=== PATIENT | female | born 1955 | race American Indian/Alaskan Native ===

== ENCOUNTER 2021-02-02 17:22 | Emergency (ER) | payer OTHER ==
[2021-02-02] MEDS ORDERED: HYDROmorphone 1 MG/ML Syringe IM ONE (17:46)
[2021-02-02] MEDS ORDERED: Ondansetron 4 MG Tab.DIS PO ONE (17:47)
[2021-02-02 17:48] VITALS: BP 151/72; PULSE 68
--- NOTE | 2021-02-02 17:48 | EDM.PDOC ---
ED HPI GENERAL MEDICAL PROBLEM - General Chief Complaint: Upper Extremity Injury/Pain Stated Complaint: SEVERE SHOULDER PAIN Time Seen by Provider: 02/02/21 17:48 Source of Information: Reports: Patient, Old Records, RN, RN Notes Reviewed History Limitations: Reports: No Limitations - History of Present Illness INITIAL COMMENTS - FREE TEXT/NARRATIVE: Pt presents to ER by POV with c/o that she is having pain to right shoulder that started today around noon. Pt took Tylenol, Ibuprofen, and Excedrin around noon without relief and pain getting worse. She has been applying ice also, but it doesn't help much. Denies trauma or specific injury, no known arthritis, and states the only thing she has done is rake leaves yesterday. Denies [place], neck pain, radiating pain, numbness, tingling, or motor weakness. Onset: Gradual Onset Date: 02/02/21 Onset Time: 12:00 Duration: Constant, Getting Worse Location: Reports: Upper Extremity, Right Quality: Reports: Ache, Sharp Severity: Severe Improves with: Reports: Immobilization Worsens with: Reports: Movement Associated Symptoms: Reports: No Other Symptoms Treatments MANAGER INFORMATION: Reports: Acetaminophen, NSAIDS Right Shoulder Pain Score (Numeric/FACES): 10 - Related Data Allergies Allergy/AdvReac Type Severity Reaction Status Date / Time Penicillins Allergy Hives Verified 02/02/21 17:28 Home Meds: Home Meds Mv,Calcium,Min/Iron/Folic/Vitk [Multi For Her Tablet] 1 tab PO DAILY 03/05/15 [History] Rosuvastatin [Crestor] 10 mg PO DAILY 12/10/16 [History] Venlafaxine [Effexor] 75 mg PO DAILY 12/10/16 [History] Aspirin 81 mg PO DAILY 02/15/18 [History] amLODIPine Besylate [Amlodipine Besylate] 5 mg PO DAILY 02/15/18 [History] Past Medical History HEENT History: Reports: Cataract Other HEENT History: bilat. cataracts Cardiovascular History: Reports: High Cholesterol, Hypertension, Other (See Below) Other Cardiovascular History: Angiogram twice in past. Told has "high BP on the inside" Respiratory History: Reports: None Gastrointestinal History: Reports: Other (See Below) Other Gastrointestinal History: occasional heartburn Genitourinary History: Reports: None Musculoskeletal History: Reports: Other (See Below) Other Musculoskeletal History: lower back pain x2 days. Middle back pain X1 day Neurological History: Reports: None Psychiatric History: Reports: Depression Endocrine/Metabolic History: Reports: None Hematologic History: Reports: None Immunologic History: Reports: None Oncologic (Cancer) History: Reports: None Dermatologic History: Reports: None Social & Family History - Family History Family Medical History: No Pertinent Family History - Caffeine Use Caffeine Use: Reports: Coffee - Living Situation & Occupation Living situation: Reports: , with Family Occupation: Employed Review of Systems - Review of Systems Review Of Systems: Comprehensive ROS is negative, except as noted in HPI. ED EXAM, GENERAL - Physical Exam Exam: See Below Exam Limited By: No Limitations General Appearance: Alert, WD/WN, No Apparent Distress Throat/Mouth: Normal Voice, No Airway Compromise Head: Atraumatic, Normocephalic Neck: Normal Inspection, Supple, Non-Tender, Full Range of Motion Respiratory/Chest: No Respiratory Distress Cardiovascular: Normal Peripheral Pulses Peripheral Pulses: 3+: Radial (L), Radial (R) Back Exam: Normal Inspection, Full Range of Motion. No: Paraspinal Tenderness, Vertebral Tenderness Extremities: No Pedal Edema, Normal Capillary Refill, Arm Pain (Focally tender at right shoulder), Limited Range of Motion (Right shoulder). No: Joint Swelling, Increased Warmth, Mottled, Pallor, Redness Neurological: Alert, Oriented, CN II-XII Intact, No Motor/Sensory Deficits Psychiatric: Normal Affect, Normal Mood Skin Exam: Warm, Dry, Intact, Normal Color, No Rash Course - Vital Signs Last Recorded V/S: Last Vital Signs Temp 98.6 F 02/02/21 17:25 Pulse 68 02/02/21 17:25 Resp 20 02/02/21 17:25 BP 151/72 H 02/02/21 17:25 Pulse Ox 100 02/02/21 17:25 - Orders/Labs/Meds Labs: Laboratory Tests 02/02/21 02/02/21 Range/Units 17:54 17:54 WBC 12.7 H (5.0-10.0) 10^3/uL RBC 4.98 (4.2-5.4) 10^6/uL Hgb 14.8 (12.0-16.0) g/dL Hct 44.3 (37.0-47.0) % MCV 89.0 (80-100) fL MCH 29.7 (27.0-34.0) pg MCHC 33.4 (33.0-35.0) g/dL Plt Count 223 (150-450) 10^3/uL Neut % (Auto) 79.3 H (42.2-75.2) % Lymph % (Auto) 12.5 L (20.5-50.1) % [place] % (Auto) 6.9 (2-8) % Eos % (Auto) 0.8 L (1.0-3.0) % Baso % (Auto) 0.5 (0.0-1.0) % Sodium 140 (136-145) mmol/L Potassium 3.3 L (3.5-5.1) mmol/L Chloride 102 (98-107) mmol/L Carbon Dioxide 27 (21-32) mmol/L Anion Gap 14.3 H (7-13) mEq/L BUN 10 (7-18) mg/dL Creatinine 0.76 (0.55-1.02) mg/dL Est Cr Clr Drug Dosing 53.01 mL/min Estimated GFR (MDRD) > 60 BUN/Creatinine Ratio 13.2 (No establ ref range) Glucose 120 H (70-99) mg/dL Calcium 8.5 (8.5-10.1) mg/dL Total Bilirubin 0.5 (0.2-1.0) mg/dL AST 24 (15-37) U/L ALT 35 (14-59) U/L Alkaline Phosphatase 92 (46-116) U/L C-Reactive Protein 0.3 (0.0-0.9) mg/dL Total Protein 7.2 (6.4-8.2) g/dL Albumin 3.7 (3.4-5.0) g/dL Globulin 3.5 Albumin/Globulin Ratio 1.1 Meds: Medications Discontinued Medications Generic Name Dose Route Start Last Admin Trade Name Freq PRN Reason Stop Dose Admin Hydromorphone HCl 1 mg 02/02/21 17:46 02/02/21 18:07 Hydromorphone 1 Mg/Ml Syringe IM 02/02/21 17:47 1 mg ONETIME ONE Administration Ondansetron HCl 4 mg 02/02/21 17:47 02/02/21 18:06 Ondansetron 4 Mg Tab.Dis PO 02/02/21 17:48 4 mg ONETIME ONE Administration - Radiology Interpretation Free Text/Narrative:: [facility] [place] [facility] Final Radiology Report Call: [phone] assistance Online chat: [email or web address] Name: ROLANDO TEJEDA Age: 65Years F Date: 02/02/2021 SSN: -- : [id number] Study: CR SHOULDER COMP RT Requesting Physician: AIDE ALTAMIRANO Images: 3 Addl Studies: Provided Clinical History: Severe Rt shoulder pain, no trauma Contrast: Contrast Medium: Contrast Amount: Contrast Method: CONFIDENTIALITY STATEMENT This report is intended only for use by the referring physician, and only in accordance with law. If you received this in error, call [phone]. Page 1 of 1 PROCEDURE INFORMATION: Exam: XR Right Shoulder Exam date and time: 02/02/2021 6:21 PM Age: 65 years old Clinical indication: Pain; Shoulder; Right; Patient HX: Onset several hours after raking leaves; Additional info: Severe RT shoulder pain, no trauma TECHNIQUE: Imaging protocol: XR Right shoulder. Views: 2 or more views. COMPARISON: No relevant prior studies available. FINDINGS: Bones/joints: There are moderate degenerative changes of the acromioclavicular joint. Mild-tomoderate degenerative change glenohumeral joint. There is no evidence of acute fracture. There is no subluxation or dislocation. Soft tissues: There is no soft tissue abnormality seen. IMPRESSION: Degenerative changes as described. Thank you for allowing us to participate in the care of your patient. Dictated and Authenticated by: Michael Rodriguez MD 02/02/2021 6:40 PM Central Time ([place] & [place]) Departure - Departure Time of Disposition: 19:02 Disposition: Home, Self-Care 01 Condition: Good Clinical Impression: Acute pain of right shoulder Degenerative arthritis of right shoulder region Qualifiers: Osteoarthritis type: unspecified Qualified Code(s): M19.011 - Primary osteoarthritis, right shoulder - Discharge Information *PRESCRIPTION DRUG MONITORING PROGRAM REVIEWED*: Not Applicable *COPY OF PRESCRIPTION DRUG MONITORING REPORT IN PATIENT YOGESH: Not Applicable Instructions: Shoulder Pain, Osteoarthritis Forms: ED Department Discharge Additional Instructions: Rx: Hydrocodone APAP 5mg/325mg Rx: Naprosyn 500mg Do not immobilize or put the right shoulder in a sling. Maintain some range of motion. Follow up in clinic for orthopedic referral if not improving in 1 week. Sepsis Event Note (ED) - Evaluation Sepsis Screening Result: No Definite Risk - Focused Exam Vital Signs: Vital Signs Temp Pulse Resp BP Pulse Ox 02/02/21 17:25 98.6 F 68 20 151/72 H 100
[2021-02-02 18:18] LABS: ANION GAP 14.3 mEq/L (7-13); CHLORIDE,CL 102 mmol/L (98-107); SODIUM,NA 140 mmol/L (136-145)
--- NOTE | 2021-02-02 18:40 | CR ---
PROCEDURE INFORMATION: Exam: XR Right Shoulder Exam date and time: 02/02/2021 6:21 PM Age: 65 years old Clinical indication: Pain; Shoulder; Right; Patient HX: Onset several hours after raking leaves; Additional info: Severe RT shoulder pain, no trauma TECHNIQUE: Imaging protocol: XR Right shoulder. Views: 2 or more views. COMPARISON: No relevant prior studies available. FINDINGS: Bones/joints: There are moderate degenerative changes of the acromioclavicular joint. [id number] degenerative change glenohumeral joint. There is no evidence of acute fracture. There is no subluxation or dislocation. Soft tissues: There is no soft tissue abnormality seen. IMPRESSION: Degenerative changes as described.
== END 2021-02-02 19:20 | disposition home or self-care (01) ==
LOC: DL.ED 17:22
DX: M19.011 Primary osteoarthritis, right shoulder (principal); E78.00 Pure hypercholesterolemia, unspecified; I10 Essential (primary) hypertension; Z79.82 Long term (current) use of aspirin; Z79.899 Other long term (current) drug therapy; Z88.0 Allergy status to penicillin
CPT/HCPCS: 36415; 73030-RT; 80053; 85025; 86140; 96372; 99283; A9270-GY; J1170

== ENCOUNTER 2021-08-09 03:28 | Emergency (ER) | payer OTHER ==
[2021-08-09 03:47] VITALS: BP 151/72; PULSE 66
--- NOTE | 2021-08-09 03:52 | EDM.PDOC ---
ED HPI GENERAL MEDICAL PROBLEM - General Chief Complaint: Lower Extremity Injury/Pain Stated Complaint: INJURY TO LEFT FOOT. Time Seen by Provider: 08/09/21 03:45 Source of Information: Reports: Patient History Limitations: Reports: No Limitations - History of Present Illness INITIAL COMMENTS - FREE TEXT/NARRATIVE: Pt is here for left foot pain. She was playing cards this evening with friends and had gotten up to get something around 2300. She started to move quickly towards her son when she saw the baby on the floor. She tried to change direction and noted her left toes drug along the floor and the top of her foot struck the bottom of the 1 year old baby. She has had pain in her foot since that time. She denies any numbness or tingling. She is able to put weight on it, but it is very painful. No previous injury noted. She has been unable to sleep due to the pain so she came in for further evaluation. Left Foot Pain Score (Numeric/FACES): 10 - Related Data Allergies Allergy/AdvReac Type Severity Reaction Status Date / Time Penicillins Allergy Hives Verified 02/02/21 17:28 Home Meds: Home Meds Mv,Calcium,Min/Iron/Folic/Vitk [Multi For Her Tablet] 1 tab PO DAILY 03/05/15 [History] Rosuvastatin [Crestor] 10 mg PO DAILY 12/10/16 [History] Venlafaxine [Effexor] 75 mg PO DAILY 12/10/16 [History] Aspirin 81 mg PO DAILY 02/15/18 [History] amLODIPine Besylate [Amlodipine Besylate] 5 mg PO DAILY 02/15/18 [History] Miscellaneous Medical Supply [DME for Prescription] 1 each .XX ASDIRECTED #1 each 08/09/21 [Rx] Past Medical History HEENT History: Reports: Cataract Other HEENT History: bilat. cataracts Cardiovascular History: Reports: High Cholesterol, Hypertension, Other (See Below) Other Cardiovascular History: Angiogram twice in past. Told has "high BP on the inside" Respiratory History: Reports: None Gastrointestinal History: Reports: Other (See Below) Other Gastrointestinal History: occasional heartburn Genitourinary History: Reports: None Musculoskeletal History: Reports: Other (See Below) Other Musculoskeletal History: lower back pain x2 days. Middle back pain X1 day Neurological History: Reports: None Psychiatric History: Reports: Depression Endocrine/Metabolic History: Reports: None Hematologic History: Reports: None Immunologic History: Reports: None Oncologic (Cancer) History: Reports: None Dermatologic History: Reports: None - Infectious Disease History Infectious Disease History: Reports: Novel Coronavirus Social & Family History - Family History Family Medical History: No Pertinent Family History - Caffeine Use Caffeine Use: Reports: Coffee - Living Situation & Occupation Living situation: Reports: , with Family Occupation: Employed Review of Systems - Review of Systems Review Of Systems: Comprehensive ROS is negative, except as noted in HPI. ED EXAM, GENERAL - Physical Exam Exam: See Below Exam Limited By: No Limitations General Appearance: Alert, WD/WN, No Apparent Distress Eye Exam: Bilateral Eye: Normal Inspection Ears: Normal External Exam Throat/Mouth: Normal Voice, No Airway Compromise Head: Atraumatic, Normocephalic Neck: Supple Respiratory/Chest: No Respiratory Distress, No Accessory Muscle Use Cardiovascular: Normal Peripheral Pulses, Regular Rate, Rhythm GI/Abdominal: Soft, No Distention (Female) Exam: Deferred Rectal (Female) Exam: Deferred Extremities: Other (left foot swelling with ecchymosis noted on dorsal lateral foot over distal metatarsals 3-5. Neurovascularly intact in toes. Normal cap refill. ) Psychiatric: Normal Affect, Normal Mood Skin Exam: Warm, Dry, Intact Course - Vital Signs Last Recorded V/S: Last Vital Signs Temp 98 F 08/09/21 03:44 Pulse 66 08/09/21 03:44 Resp 18 08/09/21 03:44 BP 151/72 H 08/09/21 03:44 Pulse Ox 98 08/09/21 03:44 - Orders/Labs/Meds Orders: Active Orders 24 hr Category Date Time Status Foot 2V Lt [CR] Urgent Exams 08/09/21 03:47 Ordered - Re-Assessments/Exams Free Text/Narrative Re-Assessment/Exam: [facility] consulted to see if they would like to see this pt in follow up and whether the pt should be weight bearing or not. They were very rude about being consulted and hung up the phone. 08/09/21 04:32 Pt placed in walking boot. 08/09/21 04:58 Departure - Departure Time of Disposition: 04:57 Disposition: Home, Self-Care 01 Condition: Fair Clinical Impression: Fracture of fifth metatarsal bone of left foot Qualifiers: Encounter type: initial encounter Fracture type: closed Fracture alignment: nondisplaced Qualified Code(s): S92.355A - Nondisplaced fracture of fifth metatarsal bone, left foot, initial encounter for closed fracture - Discharge Information *PRESCRIPTION DRUG MONITORING PROGRAM REVIEWED*: Not Applicable *COPY OF PRESCRIPTION DRUG MONITORING REPORT IN PATIENT YOGESH: Not Applicable Prescriptions: Miscellaneous Medical Supply [DME for Prescription] 1 each .XX ASDIRECTED #1 each Instructions: Metatarsal Fracture Forms: ED Department Discharge Additional Instructions: Wear the walking boot with weight bearing as tolerated Over the counter medications and ice therapy as needed for pain relief. Follow up with your primary care provider in 2-3 days Sepsis Event Note (ED) - Evaluation Sepsis Screening Result: No Definite Risk - Focused Exam Vital Signs: Vital Signs Temp Pulse Resp BP Pulse Ox 08/09/21 03:44 98 F 66 18 151/72 H 98 - My Orders Last 24 Hours: My Active Orders 08/09/21 03:47 Foot 2V Lt [CR] Urgent - Assessment/Plan Last 24 Hours: My Active Orders 08/09/21 03:47 Foot 2V Lt [CR] Urgent
--- NOTE | 2021-08-09 06:58 | CR ---
PROCEDURE INFORMATION: Exam: XR Left Foot Exam date and time: 08/09/2021 3:58 AM Age: 66 years old Clinical indication: Other: Ran into something/pain; Additional info: Left foot injury TECHNIQUE: Imaging protocol: XR Left foot. Views: 1 or 2 views. COMPARISON: No relevant prior studies available. FINDINGS: Bones/joints: There are changes of prior 1st metatarsal osteotomy and bunionectomy. Comminuted 5th metatarsal shaft fracture. There is a heel spur. Soft tissues: Normal. IMPRESSION: Comminuted 5th metatarsal shaft fracture.
== END 2021-08-09 05:00 | disposition home or self-care (01) ==
LOC: DL.ED 03:28
DX: S92.355A Nondisplaced fracture of fifth metatarsal bone, left foot, initial encounter for closed fracture (principal); E78.00 Pure hypercholesterolemia, unspecified; I10 Essential (primary) hypertension; Z79.82 Long term (current) use of aspirin; Z88.0 Allergy status to penicillin; W50.0XXA Accidental hit or strike by another person, initial encounter
CPT/HCPCS: 73620-LT; 99283

== ENCOUNTER 2021-08-21 22:08 | Emergency (ER) | payer OTHER ==
[2021-08-21] MEDS ORDERED: Acetaminophen/oxyCODONE 325-5 MG Tab PO ONE (22:09)
[2021-08-21 22:23] VITALS: BP 146/75; PULSE 72
[2021-08-21] MEDS: Ondansetron 4 MG Tab.DIS PO ONE (22:37)
[2021-08-21] MEDS: Morphine 4 MG/ML Syringe IM ONE (22:37)
[2021-08-21] MEDS ORDERED: Acetaminophen/oxyCODONE 325-5 MG Tab ONE (22:44)
--- NOTE | 2021-08-21 22:52 | EDM.PDOC ---
ED HPI GENERAL MEDICAL PROBLEM - General Chief Complaint: Lower Extremity Injury/Pain Stated Complaint: LEFT IN PAIN AFTER SURGERY Time Seen by Provider: 08/21/21 22:20 Source of Information: Reports: Patient History Limitations: Reports: No Limitations - History of Present Illness INITIAL COMMENTS - FREE TEXT/NARRATIVE: ED with c/o uncontrolled pain to left foot. Recent fracture to outer fooot and had pinning done today. Home with hydrocodone . States has had foot elevated but unable to sleep aor find comfortable position. Foot Pain Score (Numeric/FACES): 10 - Related Data Allergies Allergy/AdvReac Type Severity Reaction Status Date / Time Penicillins Allergy Hives Verified 02/02/21 17:28 Home Meds: Home Meds Mv,Calcium,Min/Iron/Folic/Vitk [Multi For Her Tablet] 1 tab PO DAILY 03/05/15 [History] Rosuvastatin [Crestor] 10 mg PO DAILY 12/10/16 [History] Venlafaxine [Effexor] 75 mg PO DAILY 12/10/16 [History] Aspirin 81 mg PO DAILY 02/15/18 [History] amLODIPine Besylate [Amlodipine Besylate] 5 mg PO DAILY 02/15/18 [History] Miscellaneous Medical Supply [DME for Prescription] 1 each .XX ASDIRECTED #1 each 08/09/21 [Rx] Past Medical History HEENT History: Reports: Cataract Other HEENT History: bilat. cataracts Cardiovascular History: Reports: High Cholesterol, Hypertension, Other (See Below) Other Cardiovascular History: Angiogram twice in past. Told has "high BP on the inside" Respiratory History: Reports: None Gastrointestinal History: Reports: Other (See Below) Other Gastrointestinal History: occasional heartburn Genitourinary History: Reports: None Musculoskeletal History: Reports: Other (See Below) Other Musculoskeletal History: lower back pain x2 days. Middle back pain X1 day Neurological History: Reports: None Psychiatric History: Reports: Depression Endocrine/Metabolic History: Reports: None Hematologic History: Reports: None Immunologic History: Reports: None Oncologic (Cancer) History: Reports: None Dermatologic History: Reports: None - Infectious Disease History Infectious Disease History: Reports: Novel Coronavirus - Past Surgical History Musculoskeletal Surgical History: Reports: Other (See Below) Other Musculoskeletal Surgeries/Procedures:: Surgery with brian and pin to L Foot Social & Family History - Family History Family Medical History: No Pertinent Family History - Tobacco Use Tobacco Use Status *Q: Never Tobacco User - Caffeine Use Caffeine Use: Reports: Coffee - Recreational Drug Use Recreational Drug Use: No - Living Situation & Occupation Living situation: Reports: , with Family Occupation: Employed Review of Systems - Review of Systems Review Of Systems: Comprehensive ROS is negative, except as noted in HPI. ED EXAM, GENERAL - Physical Exam Exam: See Below Exam Limited By: No Limitations General Appearance: Alert, Mild Distress Eye Exam: Bilateral Eye: EOMI Ears: Normal External Exam Nose: Normal Inspection Throat/Mouth: Normal Inspection Head: Atraumatic, Normocephalic Neck: Normal Inspection Respiratory/Chest: No Respiratory Distress Cardiovascular: Normal Peripheral Pulses, Regular Rate, Rhythm Extremities: Other (Alli splint inplace left lower extremity. mild swelling toes, good cap refill. sensation intact. ) Neurological: Alert, Oriented, Normal Cognition Skin Exam: Warm, Dry Course - Vital Signs Last Recorded V/S: Last Vital Signs Temp 98.9 F 08/21/21 22:20 Pulse 72 08/21/21 22:20 Resp 16 08/21/21 22:20 BP 146/75 H 08/21/21 22:20 Pulse Ox 96 08/21/21 22:20 - Orders/Labs/Meds Meds: Medications Discontinued Medications Generic Name Dose Route Start Last Admin Trade Name Lina PRMalena Reason Stop Dose Admin Morphine Sulfate 4 mg 08/21/21 22:26 08/21/21 22:37 Morphine 4 Mg/Ml Syringe IM 08/21/21 22:27 4 mg ONETIME ONE Administration Ondansetron HCl 4 mg 08/21/21 22:26 08/21/21 22:37 Ondansetron 4 Mg Tab.Dis PO 08/21/21 22:27 4 mg ONETIME ONE Administration Oxycodone/Acetaminophen Confirm 08/21/21 22:44 Acetaminophen/Oxycodone 325-5 Mg Tab Administered 08/21/21 22:45 Dose 2 tab .ROUTE .STK-MED ONE Oxycodone/Acetaminophen 1 tab 08/21/21 22:09 Acetaminophen/Oxycodone 325-5 Mg Tab PO 08/21/21 22:10 .STK-MED ONE Departure - Departure Time of Disposition: 22:47 Disposition: Home, Self-Care 01 Condition: Good Clinical Impression: Left foot pain Foot fracture, left Qualifiers: Encounter type: subsequent encounter Fracture type: closed Fracture healing: with delayed healing Qualified Code(s): S92.902G - Unspecified fracture of left foot, subsequent encounter for fracture with delayed healing - Discharge Information *PRESCRIPTION DRUG MONITORING PROGRAM REVIEWED*: No *COPY OF PRESCRIPTION DRUG MONITORING REPORT IN PATIENT YOGESH: No Instructions: Cast or Splint Care, Adult, [id number], Foot Pain Forms: ED Department Discharge Additional Instructions: elevate non weight bearing urgent follow up if change in sensation or increased pain percocet 5/325 one every 6 hours as needed for discomfort Sepsis Event Note (ED) - Evaluation Sepsis Screening Result: No Definite Risk
== END 2021-08-21 23:02 | disposition home or self-care (01) ==
LOC: DL.ED 22:08
DX: S92.902G Unspecified fracture of left foot, subsequent encounter for fracture with delayed healing (principal); I10 Essential (primary) hypertension; E78.00 Pure hypercholesterolemia, unspecified; Z88.0 Allergy status to penicillin; Z79.82 Long term (current) use of aspirin; Z79.899 Other long term (current) drug therapy; X58.XXXA Exposure to other specified factors, initial encounter
CPT/HCPCS: 96372; 99283; A9270; J2270

== ENCOUNTER 2024-06-07 11:59 | Emergency (ER) | payer SELFPAY ==
[2024-06-07 13:35] VITALS: BP 158/67; PULSE 54
== END 2024-06-07 13:24 | disposition home or self-care (01) ==
LOC: DL.ED 11:59
DX: J32.9 Chronic sinusitis, unspecified (principal); I10 Essential (primary) hypertension; E78.00 Pure hypercholesterolemia, unspecified; Z79.82 Long term (current) use of aspirin; Z79.899 Other long term (current) drug therapy; Z88.0 Allergy status to penicillin
CPT/HCPCS: 99284

== ENCOUNTER 2024-08-30 12:21 | Emergency (ER) | payer OTHER ==
[2024-08-30 12:57] VITALS: BP 133/67; PULSE 60
[2024-08-30] MEDS: Dexamethasone 4 MG/ML SDV IM ONE (13:24)
[2024-08-30] MEDS: Lidocaine 2% Jelly 5 ML Tube TOP ONE (13:38)
[2024-08-30] MEDS: Lidocaine 5% Oint 35.44 GM Tube TOP ONE (13:49)
[2024-08-30] MEDS: Lidocaine 5% Oint 35.44 GM Tube ONE (13:50)
== END 2024-08-30 13:35 | disposition home or self-care (01) ==
LOC: DL.ED 12:21
DX: L23.7 Allergic contact dermatitis due to plants, except food (principal); I10 Essential (primary) hypertension; E78.00 Pure hypercholesterolemia, unspecified; Z86.16 Personal history of COVID-19; Z79.899 Other long term (current) drug therapy; Z79.82 Long term (current) use of aspirin; Z88.0 Allergy status to penicillin
CPT/HCPCS: 96372; 99282; A9270; J1100